=== PATIENT | male | born 2005 | race Caucasian/White ===

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

== ENCOUNTER → 2024-10-21 21:12 | Outpatient (BNV) | payer OTHER, SELFPAY | PROVIDERS: Emergency Provider Internal Medicine; Visit Provider Radiology Diagnostic Radiology | DX: M25.551 Pain in right hip (principal); M25.511 Pain in right shoulder; R07.9 Chest pain, unspecified; R60.0 Localized edema | CPT/HCPCS: 71045; 73030; 73502; 73610 ==

== ENCOUNTER 2024-10-21 21:15 | Emergency (ER) | payer OTHER, SELFPAY ==
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
--- NOTE | ~2024-10-21 | XR_ITS ---
CLINICAL HISTORY: trauma Right shoulder three views Comparison: None provided Findings: No acute fracture or dislocation identified. No acute focal bony abnormality. No radiopaque foreign body noted. Impression: No acute bony abnormality This document has been electronically signed by: Kai Espinoza MD on 10/21/2024 22:30:11
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
[2024-10-21 21:38] VITALS: BP 135/65; PULSE 86; TEMP 36.5; BMI 25.1
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
[2024-10-21 22:41] VITALS: BP 135/65; PULSE 86; RESP 16; TEMP 36.5; O2SAT 100
== END 2024-10-21 22:42 | disposition home or self-care (01) ==
PROVIDERS: Emergency Provider Internal Medicine
DX: S70.311A Abrasion, right thigh, initial encounter (principal); S60.511A Abrasion of right hand, initial encounter; V09.9XXA Pedestrian injured in unspecified transport accident, initial encounter; Y93.55 Activity, bike riding; Y92.9 Unspecified place or not applicable; Y99.9 Unspecified external cause status
CPT/HCPCS: 71045; 73030; 73502; 73610; 99283; 99284